=== PATIENT | male | born 1950 | race Caucasian/White ===

== ENCOUNTER 2024-03-25 09:07 | Outpatient (RCR) | payer MEDICARE, BC, SELFPAY | END 2024-03-28 23:59 | disposition home or self-care (01) | LOC: SCTC 09:07 | PROVIDERS: PCP Nurse Practitioner Family; Referring Provider Nurse Practitioner Family; Visit Provider Radiology Therapeutic Radiology | DX: Z51.0 Encounter for antineoplastic radiation therapy (principal); C61 Malignant neoplasm of prostate; Z79.818 Long term (current) use of other agents affecting estrogen receptors and estrogen levels | CPT/HCPCS: 77014; 77290; 77300; 77301; 77336; 77338; 77385 ==

== ENCOUNTER → 2024-04-20 | Outpatient (CLI) | payer MEDICARE, BC, SELFPAY ==
[2024-04-20 10:32] LABS: Basophils % (Auto) 1 % (0-2.5); Eosinophils # (Auto) 0.1 Thou/mm3 (0.0-0.5); Eosinophils % (Auto) 5 % (0-10); Hematocrit 38.2 % (41.0-53.0); Hemoglobin 12.7 g/dL (13.5-16.0); Immature Granulocytes % (Auto) 0 % (0-0); Immature Granulocytes Auto 0.01 Thou/mm3 (0.00-0.00); Lymphocytes # (Auto) 0.3 Thou/mm3 (1.0-4.8); Lymphocytes % (Auto) 10 % (10-50); Mean Corpuscular HGB Conc 33.2 g/dl (31.0-37.0); Mean Corpuscular Hemoglobin 30.7 pg (25.0-35.0); Mean Corpuscular Volume 92 fL (80-100); Monocytes # (Auto) 0.4 Thou/mm3 (0.0-0.8); Monocytes % (Auto) 14 % (0-12); Neutrophils % (Auto) 70 % (37-80); Nucleated Red Blood Cell % 0 /100 WBC (0); Platelet Count 135 Thou/mm3 (140-440); RDW Standard Deviation 43.1 fL (35.1-43.9); Red Blood Count 4.14 Miln/mm3 (4.50-5.90)
[2024-04-20 10:37] LABS: White Blood Count 2.9 Thou/mm3 (3.8-10.6)
[2024-04-20 10:46] LABS: Alanine Aminotransferase 27 U/L (10-49); Albumin, Serum 4.4 gm/dL (3.4-4.8); Albumin/Globulin Ratio 2.4 (1.2-2.2); Alkaline Phosphatase 89 U/L (46-116); Anion Gap 7 (7-16); Aspartate Amino Transferase 18 U/L (0-34); BUN/Creatinine Ratio 19 Ratio (12-20); Bilirubin,Total 0.6 mg/dL (0.3-1.2); Blood Urea Nitrogen 19 mg/dL (9-23); Calcium 9.3 mg/dL (8.3-10.6); Calcium (Corrected) 9.3 mg/dL (8.5-10.1); Carbon Dioxide 31.2 mMol/L (20.0-31.0); Chloride 104 mMol/L (98-107); Globulin 1.8 gm/dL (2.3-3.5); Glucose 109 mg/dL (74-106); Osmolality,Calculated 286 (275-295); Potassium 3.8 mMol/L (3.4-5.1); Sodium 142 mMol/L (136-145); Total Protein 6.2 gm/dL (5.7-8.2); eGFR > 60 See Note
== END | disposition home or self-care (01) ==
LOC: CDIM 10:03 → COPL 10:06
PROVIDERS: PCP Radiology Therapeutic Radiology; Referring Provider Nurse Practitioner Family; Visit Provider Nurse Practitioner Family
DX: C61 Malignant neoplasm of prostate (principal)
CPT/HCPCS: 36415; 80053; 85025

== ENCOUNTER 2024-04-24 09:07 | Outpatient (RCR) | payer MEDICARE, BC, SELFPAY ==
--- NOTE | 2024-03-31 10:35 | CTCTRTNOTE_ITS ---
[facility] [address], [place] [address] Weekly Management Date: 03/31/2024 ?? Name: ADALI Carrillo.: 1950 A. Patient is currently at 4680 cGy. B. Patient is tolerating treatment well. C. . No significant pelvic symptoms. Now getting a boost. D. Resume radiation therapy. Electronically signed by: Memo Morris M.D. 03/31/2024 10:33 AM
--- NOTE | 2024-04-06 10:40 | CTCTRTNOTE_ITS ---
[facility] [address], [place] [address] Weekly Management Date: 04/06/2024 ?? Name: ADALI Carrillo.: 1950 A. Patient is currently at 5220 cGy. B. Patient is tolerating treatment well. Getting boost. C. Resume radiation therapy. Will have Kitchen removed 2 weeks after completing radiation. Electronically signed by: Memo Morris M.D. 04/06/2024 10:38 AM
== END 2024-04-28 23:59 | disposition home or self-care (01) ==
LOC: SCTC 09:07
PROVIDERS: PCP Nurse Practitioner Family; Referring Provider Nurse Practitioner Family; Visit Provider Radiology Therapeutic Radiology
DX: Z51.0 Encounter for antineoplastic radiation therapy (principal); C61 Malignant neoplasm of prostate
CPT/HCPCS: 77336; 77385

== ENCOUNTER → 2024-05-06 | Outpatient (CLI) | payer MEDICARE, BC, SELFPAY ==
[2024-05-06 15:59] LABS: Prostate Specific Antigen 0.57 ng/mL (0-4.00)
== END | disposition home or self-care (01) ==
LOC: COPL 14:19
PROVIDERS: PCP Nurse Practitioner Family; Referring Provider Internal Medicine; Visit Provider Physician Assistant
DX: C61 Malignant neoplasm of prostate (principal); R33.9 Retention of urine, unspecified; Z46.6 Encounter for fitting and adjustment of urinary device
CPT/HCPCS: 36415; 84153

== ENCOUNTER 2024-05-13 13:53 | Outpatient (RCR) | payer MEDICARE, BC, SELFPAY ==
--- NOTE | 2024-05-13 14:32 | CTCTSUMM_ITS ---
[facility] [address] [place], [place] [address] Treatment Summary Date: 05/13/2024 MR#: [id number] Name: ADALI LINTON : 1950 Dx: C61 Referring Physician: Lacey Carbajal Diagnosis: [ICD10] C61 Malignant neoplasm of prostate (A) Aim of Treatment: ??Curative (B) Concomitant Chemotherapy: No (C) Radiation Dates: 02/19/2024 through 04/24/2024 Treatment Prescription prostate boost VMAT 10MV 3,060 cGy 17 180 cGy Approved pelvis VMAT 10MV 4,500 cGy 25 180 cGy Approved (D) All lawson were treated using customized MLC Blocks (E) Finding at Discharge: Patient seen for first follow-up on 05/13/2024 was feeling well but stated that catheter which was initially removed had to put back in. because of persistent prostate swellin g. Posttreatment PSA 05/06/2024 0.57 (F) Discharge Instructions and F/U Appt was given: The patient was also advised to continue follow-up with Dr. Carbajal and primary care physician: Electronically signed by: Memo Morris MD, ALINA 05/13/2024 2:30 PM
== END 2024-05-29 23:59 | disposition home or self-care (01) ==
LOC: SCTC 13:53
PROVIDERS: Referring Provider Radiology Therapeutic Radiology; Visit Provider Radiology Therapeutic Radiology
DX: C61 Malignant neoplasm of prostate (principal); Z92.3 Personal history of irradiation
CPT/HCPCS: 99213; G0463

== ENCOUNTER → 2024-08-03 | Outpatient (CLI) | payer MEDICARE, BC, SELFPAY ==
[2024-08-03 12:23] LABS: Prostate Specific Antigen 0.19 ng/mL (0-4.00)
== END | disposition home or self-care (01) ==
LOC: COPL 11:19
PROVIDERS: PCP Family Medicine; Referring Provider Urology; Visit Provider Urology
DX: C61 Malignant neoplasm of prostate (principal); R33.9 Retention of urine, unspecified; Z87.898 Personal history of other specified conditions; Z92.3 Personal history of irradiation
CPT/HCPCS: 36415; 84153

== ENCOUNTER → 2024-11-06 | Outpatient (CLI) | payer MEDICARE, BC, SELFPAY ==
[2024-11-06 15:45] LABS: Prostate Specific Antigen 0.10 ng/mL (0-4.00)
== END | disposition home or self-care (01) ==
LOC: COPL 14:20
PROVIDERS: PCP Nurse Practitioner Family; Referring Provider Urology; Visit Provider Urology
DX: C61 Malignant neoplasm of prostate (principal); R33.9 Retention of urine, unspecified; Z87.898 Personal history of other specified conditions; Z92.3 Personal history of irradiation
CPT/HCPCS: 36415; 84153

== ENCOUNTER 2024-11-10 08:23 | Outpatient (RCR) | payer MEDICARE, BC, SELFPAY ==
--- NOTE | 2024-11-10 09:11 | CTCFLWUP_ITS ---
[facility] [address] [place], [place] [address] FOLLOW-UP NOTE Date: 11/10/2024 MR#: [id number] Name: ADALI LINTON : 1950 Dx: C61 Malignant neoplasm of prostate Identification. CA of the prostate PSA 35 Judy score 7 and 8 PET scan 11/13/2024 multiple hypermetabolic nodes retroperitoneal right and left iliac chains and pelvic sidewalls, along with prostate. Patient has been seen initiated on Lupron as well as abiraterone and prednisone in [place]. Completed full course radiation therapy 4500 centigray of the pelvis and 7560 centigray to the prostate region. Patient's PSA less than 0.1, but prostate still somewhat swollen and he could not have his catheter removed. Feels well otherwise. Patient reportedly will have surgery soon by Dr. Carbajal to be performed in [place] soon. I will see the patient again in 4 months for follow-up. Electronically signed by: Memo Morris M.D. 11/10/2024 9:08 AM
== END 2024-11-26 23:59 | disposition home or self-care (01) ==
LOC: SCTC 08:23
PROVIDERS: PCP Nurse Practitioner Family; Referring Provider Nurse Practitioner Family; Visit Provider Radiology Therapeutic Radiology
DX: C61 Malignant neoplasm of prostate (principal); Z92.3 Personal history of irradiation
CPT/HCPCS: 99213; G0463

== ENCOUNTER → 2024-11-20 | Outpatient (CLI) | payer MEDICARE, BC, SELFPAY ==
[2024-11-20 11:33] LABS: Collection Type, Urine Clean Catch; Squamous Epithelial Cell,Urine 0 /hpf (0-5)
[2024-11-20 11:33] LABS: Basophils # (Auto) 0.0 Thou/mm3 (0.0-0.2); Basophils % (Auto) 1 % (0-2.5); Eosinophils # (Auto) 0.1 Thou/mm3 (0.0-0.5); Eosinophils % (Auto) 4 % (0-10); Hematocrit 40.6 % (41.0-53.0); Hemoglobin 13.3 g/dL (13.5-16.0); Immature Granulocytes Auto 0.02 Thou/mm3 (0.00-0.00); Lymphocytes # (Auto) 0.5 Thou/mm3 (1.0-4.8); Lymphocytes % (Auto) 14 % (10-50); Mean Corpuscular HGB Conc 32.8 g/dl (31.0-37.0); Mean Corpuscular Hemoglobin 29.5 pg (25.0-35.0); Mean Corpuscular Volume 90 fL (80-100); Monocytes # (Auto) 0.3 Thou/mm3 (0.0-0.8); Monocytes % (Auto) 8 % (0-12); Neutrophils # (Auto) 2.5 Thou/mm3 (1.8-7.7); Neutrophils % (Auto) 73 % (37-80); Nucleated Red Blood Cell # 0.00 Thou/mm3 (0.00-0.00); Nucleated Red Blood Cell % 0 /100 WBC (0); Platelet Count 131 Thou/mm3 (140-440); RDW Standard Deviation 43.0 fL (35.1-43.9); Red Blood Count 4.51 Miln/mm3 (4.50-5.90); White Blood Count 3.5 Thou/mm3 (3.8-10.6)
[2024-11-20 11:46] LABS: Alanine Aminotransferase 26 U/L (10-49); Albumin, Serum 4.1 gm/dL (3.4-4.8); Albumin/Globulin Ratio 1.9 (1.2-2.2); Alkaline Phosphatase 79 U/L (46-116); Anion Gap 8 (7-16); Aspartate Amino Transferase 24 U/L (0-34); BUN/Creatinine Ratio 12 Ratio (12-20); Bilirubin,Total 0.5 mg/dL (0.3-1.2); Blood Urea Nitrogen 12 mg/dL (9-23); Calcium 9.1 mg/dL (8.3-10.6); Calcium (Corrected) 9.1 mg/dL (8.5-10.1); Carbon Dioxide 33.1 mMol/L (20.0-31.0); Cardiac Risk Estimate 6.1 RATIO (4.0-6.7); Chloride 107 mMol/L (98-107); Cholesterol 231 mg/dL (132-200); Creatinine (Component) 1.0 mg/dL (0.6-1.3); Globulin 2.2 gm/dL (2.3-3.5); Glucose 133 mg/dL (74-106); HDL Cholesterol 38 mg/dL (40-60); LDL Cholesterol,Calculated 141 mg/dL (0-130); Osmolality,Calculated 295 (275-295); Potassium 3.8 mMol/L (3.4-5.1); Sodium 148 mMol/L (136-145); Thyroid Stimulating Hormone 4.13 uIU/mL (0.55-4.78); Total Protein 6.3 gm/dL (5.7-8.2); Triglycerides 260 mg/dL (30-150); eGFR > 60 See Note
[2024-11-20 12:14] LABS: Bacteria,Urine 2+; Bilirubin,Urine Negative (Negative); Blood,Urine 3+ (Negative); Color,Urine Yellow (Lt Yel-Yel); Glucose, Urine Negative (Negative); Ketones,Urine Negative (Negative); Leukocyte Esterase,Urine Positive (Negative); Nitrite,Urine Positive (Negative); PH,Urine 6.0 (5.0-7.0); Protein,Urine 1+ (Neg - Trace); RBC,Urine 165 /hpf (0-3); Specific Gravity,Urine 1.022 (1.001-1.035); Urobilinogen,Urine Negative mg/dL (0.0-1.0); WBC,Urine 352 /hpf (0-5)
[2024-11-20 12:22] LABS: Clarity,Urine Cloudy (Clear/Hazy); Culture Indicated,Urine Yes
== END | disposition home or self-care (01) ==
LOC: COPL 10:39
PROVIDERS: PCP Nurse Practitioner Family; Referring Provider Nurse Practitioner Family; Visit Provider Nurse Practitioner Family
DX: Z00.00 Encounter for general adult medical examination without abnormal findings (principal); I10 Essential (primary) hypertension
CPT/HCPCS: 36415; 80053; 80061; 81001; 83036; 84443; 85025; 87077; 87086; 87186

== ENCOUNTER → 2025-03-03 | Outpatient (CLI) | payer MEDICARE, BC, SELFPAY ==
[2025-03-03 11:27] LABS: Prostate Specific Antigen < 0.10 ng/mL (0-4.00)
== END | disposition home or self-care (01) ==
LOC: COPL 10:04
PROVIDERS: PCP Family Medicine
DX: C61 Malignant neoplasm of prostate (principal)
CPT/HCPCS: 36415; 84153

== ENCOUNTER 2025-03-11 10:25 | Outpatient (RCR) | payer MEDICARE, BC, SELFPAY ==
--- NOTE | 2025-03-11 11:31 | CTCFLWUP_ITS ---
[facility] [address] [place], [place] [address] FOLLOW-UP NOTE Date: 03/11/2025 MR#: [id number] Name: ADALI LINTON : 1950 Dx: C61 Malignant neoplasm of prostate Identification. Patient with prostate CA Judy score 7 and 8 PSA 35 PET scan 11/13/2024 revealed multiple Nodes in retroperitoneal right and left iliac chains and pelvic sidewalls. Patient was initiated on Lupron as well as albuterol and prednisone in [place]. Received radiation therapy consisting of 4500 cgy pelvis 7560 cGy prostate region completed 04/24/2024. Patient receiving hormone manipulation meds under Dr. Schmitt's direction in [place]. Recent PSA reported less than 0.1. Doing well overall with minor side effects related to hormone treatments. I will see him as needed in the future. Electronically signed by: Memo Morris M.D. 03/11/2025 11:28 AM
== END 2025-03-28 23:59 | disposition home or self-care (01) ==
LOC: SCTC 10:25
PROVIDERS: PCP Family Medicine; Referring Provider Family Medicine; Visit Provider Radiology Therapeutic Radiology
DX: C61 Malignant neoplasm of prostate (principal); Z92.3 Personal history of irradiation; Z79.818 Long term (current) use of other agents affecting estrogen receptors and estrogen levels
CPT/HCPCS: 99212; G0463